=== PATIENT | female | born 1960 | race Caucasian/White ===

== ENCOUNTER → 2023-07-02 07:12 | Outpatient (CLI) | payer OTHER, SELFPAY ==
[2023-07-02 09:04] LABS: Appearance Urine UA CLEAR; Bilirubin Urine UA NEGATIVE (NEGATIVE); Color Urine UA YELLOW; Glucose Urine UA NEGATIVE (Negative); Ketones Urine UA NEGATIVE (NEGATIVE); Leukocyte Esterase Urine UA TRACE (NEGATIVE); Nitrite Urine UA NEGATIVE (Negative); Occult Blood Urine UA NEGATIVE (Negative); Protein Urine UA NEGATIVE (Negative); Specific Gravity Urine UA <=1.005 (1.000-1.035); Urobilinogen Urine UA 0.2 E.U./dL (0.2)
[2023-07-02 09:05] LABS: pH Urine UA 6.5 (4.5-8.0)
[2023-07-02 09:07] LABS: Bacteria Urine None Seen; Culture Indicated Urine Cult Not Indicated; RBC Urine None Seen (0-5/HPF); Squamous Epithelial Cell Urine None Seen (0-5/HPF); Urine Comments Microscopic Normal; WBC Urine None Seen (0-5/HPF)
[2023-07-02 09:11] LABS: Add Manual Diff / Slide Review NO; Basophils Absolute Auto 0 /uL (0-100); Basophils Percent Auto 0.5 % (0-2); Eosinophils Absolute Auto 100 /uL (0-450); Eosinophils Percent Auto 1.6 % (2-4); Hematocrit 40.3 % (36-46); Hemoglobin 13.7 g/dL (12.0-16.0); Lymphocytes Absolute Auto 2000 /uL (1100-4500); Lymphocytes Percent Auto 38.6 % (25-40); Mean Corpuscular Hemoglobin 30.7 PG (26-34); Mean Corpuscular Volume 90.3 fL (80-100); Monocytes Absolute Auto 500 /uL (0-900); Neutrophils Absolute Auto 2600 /uL (1500-7000); Neutrophils Percent Auto 50.3 % (50-75); Platelet Count 258 X10^3/uL (150-400); Red Blood Cell Count 4.46 X10^6/uL (4.0-5.2); Red Cell Distribution Width 12.8 % (11.6-14.8); White Blood Cell Count 5.1 X10^3/uL (4.5-11.0)
[2023-07-02 09:24] LABS: Hemoglobin A1C% w Est Avg Glu 5.4 % (4.0-6.0)
[2023-07-02 09:33] LABS: BUN Creatinine Ratio 25.8 (6-22); Blood Urea Nitrogen 16 mg/dL (7-17); Calcium 9.4 mg/dL (8.4-10.2); Carbon Dioxide 26 mmol/L (22-32); Chloride 105 mmol/L (98-107); Estimated Glomerular Filt Rate > 60 mL/min (>60); Glucose 94 mg/dL (80-110); HEMOLYSIS < 15 (0-50); Sodium 139 mmol/L (137-145)
== END ==
LOC: LAB 07:17 → RESP 07:21
PROVIDERS: Referring Provider Orthopaedic Surgery; Visit Provider Orthopaedic Surgery
DX: Z01.818 Encounter for other preprocedural examination (principal); Z01.812 Encounter for preprocedural laboratory examination; R73.9 Hyperglycemia, unspecified; N39.0 Urinary tract infection, site not specified
CPT/HCPCS: 36415; 80048; 81001; 83036; 85025; 93005; 93010

== ENCOUNTER 2023-10-10 05:59 | Day surgery (SDC) | payer OTHER, SELFPAY ==
[2023-10-04 07:41] VITALS: BMI 34.7
[2023-10-07 11:15] VITALS: BP 162/78; PULSE 66; RESP 18; TEMP 35.8; O2SAT 98
[2023-10-10] VITALS (9 sets, daily range): BP systolic 82–144; BP diastolic 56–85; PULSE 55–77; RESP 16–18; TEMP 35.6–36.5; O2SAT 94–100; BMI 34.7; BMI 35.0
--- NOTE | 2023-10-10 06:00 | DI.RAD.S_ITS ---
PROCEDURE: XR PELVIS 1-2V INDICATIONS: INNER OP TECHNIQUE: 1 view of the lower pelvis acquired. COMPARISON: None. FINDINGS: Bones: There is right total hip arthroplasty in progress. Prior left hip arthroplasty is seen. No acute fracture or dislocation. No suspicious bony lesions. Soft tissues: Overlying postoperative changes are noted. No suspicious soft tissue densities. IMPRESSION: Intraoperative image of pelvis shows right total hip arthroplasty in progress. Dictated by: Emanuel Jeffries M.D. on 10/10/2023 at 13:26 Approved by: Emanuel Jeffries M.D. on 10/10/2023 at 13:27
[2023-10-10] MEDS: ACETAMINOPHEN 325 MG TABLET 975 MG PO (06:34)
[2023-10-10] MEDS: VANCOMYCIN 1,000 MG/200 ML PIGGYBACK 200 MG IV (06:34)
[2023-10-10] MEDS: LACTATED RINGERS 1,000 ML 42 ML IV ×2 (06:35→08:30)
[2023-10-10] MEDS: CELECOXIB 200 MG CAPSULE PO (06:35)
[2023-10-10] MEDS: SCOPOLAMINE 1 PATCH TOP (07:14)
--- NOTE | 2023-10-10 07:33 | PM.PREOP ---
Pre-operative Note Interval Note History & Physical reviewed/Exam performed by Physician: Yes Changes to H&P: No
--- NOTE | 2023-10-10 07:34 | PM.PREOP ---
Pre-operative Note Interval Note History & Physical reviewed/Exam performed by Physician: Yes Changes to H&P: No
--- NOTE | 2023-10-10 07:35 | PM.OP.1 ---
Operative Date/Time/Diagnoses Date of procedure: 10/10/23 Time of procedure: 07:35 Pre-op diagnosis: Severe right hip OA Post-op diagnosis: same Procedure & Clinicians Procedure: Right total hip arthroplasty posterior approach Same procedure as scheduled: Yes Indications: The patient has had progressively worsening right hip pain with radiographic changes consistent with arthritis. Non-operative management has failed and the patient has requested total hip replacement. The risks, benefits and alternatives to surgery were discussed with the patient prior to proceeding. Risks discussed included, but were not limited to, failure to relieve pain, leg length discrepancy, dislocation, stiffness, infection, nerve damage, deep venous thrombosis, pulmonary embolism, stroke, coma, heart attack, permanent paralysis and , as well as the potential need for eventual revision of the prosthetic. Surgeon: Jeannine Wikls Captain Waiter/Waitress: Franci Quach Anesthesia Type: General and Spinal Operative Notes Findings: Severe left hip OA, adequate bone, adequate stability, findings consistent with [facility] Closure Type: primary Specimen(s): none sent Prosthetic devices, grafts, tissues, transplants, or devices: Wilks [employer] Nephew 54 mm R3, neutral poly liner, one 6.5 mm screw, size 12 standard offset Synergy, 36 x +0 Oxinium head Estimated Blood Loss (mL): 250 Procedure in detail: The patient was seen in the pre-operative area, where the patient identified the right hip as the operative site and this was marked with my initials. The patient received pre-operative antibiotics and was taken to the operating room and placed on the operative table in the left lateral decubitus position after satisfactory anesthesia. A time study clerk out was performed. The right leg was prepared from the ankle to the iliac crest with ChloroPrep in the usual fashion and draped through sterile drapes. A PA was used during the procedure and was essential for intraoperative retraction and safe implantation of the components. The hip was approached through an approximately 20 cm incision centered over the greater trochanter and curving gently posteriorly as it went proximally. This was carried sharply to the fascia walt, which was divided and retracted with a self retaining retractor. The trochanteric bursa was excised with care being taken to avoid the sciatic nerve, which was identified and protected throughout the case. The short external rotators were incised and the capsulomuscular flap was raised and tagged for later repair. The hip was dislocated, and a femoral neck osteotomy performed approximately 15 mm above the lesser trochanter. Retractors were placed around the femur. The canal was opened with a box cutting osteotome, followed by a T handled reamer and a lateralizing reamer. The canal was sequentially reamed and then a small broach was then used, followed by sequential broaching until there was good stability of the broach in the femur. Retractors were placed to expose the acetabulum. The labrum and central soft tissues were removed. Reaming was performed initially going up in 2 mm increments, then 1 mm increments until good bite was obtained with an odd sized reamer. The cup 1 mm larger than the last reamer was then inserted using the appropriate anteversion guides. It was further stabilized with a single screw. A trial neutral liner was placed. The broach was placed in the canal. A trial head and neck were then placed and the hip relocated and checked for leg length and stability. An intraoperative film confirmed the component position and no evidence of fracture. The patient was stable in the position of sleep, of squatting, and could be put through a range of motion with 45 degrees internal rotation without dislocation. At 90 degrees flexion, internal rotation to 80? was possible before dislocation. I specifically checked to make sure there was no impingement with hip hyperextension and maximum external rotation. This was felt to be satisfactory and the appropriate components were opened, and the trials were removed. The acetabular liner was impacted into position. The final stem was then impacted into the prepared femoral canal. A brief Betadine soak was performed while trialing with head options. The hip was meticulously irrigated with normal saline. Finally the femoral head was impacted onto the stem. The acetabulum was cleared of all material and the hip relocated one final time. The capsulomuscular flap was then repaired to the greater trochanter though an awl hole using the tag sutures. The short external rotators were repaired with a nonabsorbable suture. The fascia walt was closed with Vicryl. The subcutaneous layer was closed with barbed sutures and skin dom. A lit dressing was applied and the patient was taken to recovery having tolerated the procedure well. Complications: none Post-operative Condition: stable Disposition: Acute Care Plan for aftercare: The patient will be maintained on a standard total hip replacement protocol with weight bearing as tolerated and posterior hip precautions. The patient will receive Aspirin and sequential compression devices for DVT prophylaxis. The patient will be discharged home when safe for the home environment.
[2023-10-10] MEDS: CEFAZOLIN 2 GM/100 ML PREMIX 100 ML IV ×2 (07:55→15:47)
[2023-10-10] MEDS: TRANEXAMIC ACID 1,000 MG VIAL 1000 MG INJ ×2 (07:57→09:31)
--- NOTE | 2023-10-10 08:29 | SUR.OPER ---
Lateral on padded OR bed. Gel axillary roll. Arms secured on padded armboard with pillow supporting top arm. Padded hip positioner braces x4 - anterior and posterior chest and pelvis. Additional gel pad used anterior pelvis. Gel pad under bottom leg from knee to foot and secured with tape over sheet.
[2023-10-10] MEDS: BUPIVACAINE 0.25% (PF) 60 ML, EPINEPHrine 0.3 MG INJ (08:36)
[2023-10-10] MEDS: BUPIVACAINE LIPOSOME 266 MG/20 ML VIAL INJ (08:37)
[2023-10-10] MEDS: EPINEPHrine 1 MG/ML TOP (08:38)
[2023-10-10] MEDS: LACTATED RINGERS 1,000 ML 100 ML IV (11:14)
[2023-10-10] MEDS: OXYCODONE IR 5 MG TABLET PO ×2 (11:14→15:48)
[2023-10-10] MEDS: ONDANSETRON 4 MG/2 ML INJ IV (11:14)
[2023-10-10] MEDS: ACETAMINOPHEN 325 MG TABLET 650 MG PO (13:07)
[2023-10-10] MEDS: IBUPROFEN 400 MG TABLET PO (13:08)
--- NOTE | 2023-10-10 16:00 | PT.IIE ---
Current Diagnoses Unilateral primary osteoarthritis, right hip (10/10/23) Surgery Performed Operation Date: 10/10/23 07:45 Actual Procedures p Total Hip Arthroplasty(Right) - Jeannine Wilks MD Surgical History (Last Updated 10/04/23 @ 08:10 by Rubina Stallworth, RN) History of hysterectomy History of total left hip replacement (2012) Hx of tonsillectomy Medical History (Last Updated 10/04/23 @ 09:46 by Rubina Stallworth, RN) Anesthesia complication CAD (coronary artery disease) Easy bruisability History of COVID-19 HLD (hyperlipidemia) HTN (hypertension) Hypothyroidism Osteoarthritis Physical Therapy Inpatient Evaluation/Re-Eval M1 PT/OT-IP Prior Functional Status Start: 10/10/23 14:16 Freq: NEEDED Status: Active Protocol: Document 10/10/23 15:02 MB (Rec: 10/10/23 16:00 MB [id number]) Medical Review Prior Functional Status Medical History Reviewed Yes Diet/Fluid Consistency Regular Communication WNLs Mobility and Gait I Activities of Daily Living and IADL's I Social History Household Members spouse Living Arrangements House Number of Floors (Floors) One Floor Number of Stairs To Enter/Railing? 4 steps with right rail to enter. Home Environment Standard Height Toilet,Walk in Shower Home Equipment Front Wheel Walker,Bedside Commode Employment Status Retired M2 PT-IP Current Condition Start: 10/10/23 14:16 Freq: NEEDED Status: Active Protocol: Document 10/10/23 15:02 MB (Rec: 10/10/23 16:00 MB [id number]) Physical Therapy Current Condition Current Condition Evaluation Date 10/10/23 M3 PT-IP Subjective Start: 10/10/23 14:16 Freq: NEEDED Status: Active Protocol: Document 10/10/23 15:02 MB (Rec: 10/10/23 16:00 MB [id number]) Subjective Physical Therapy Visit Type Type Initial Evaluation Visit Start Time 15:02 Visit Stop Time 15:32 Total Visit Minutes 30 Number of CHECK CLERK Visits 0 Physical Therapy Visit Comments Patient Comments I'm ready to go home! Therapy Pain Assessment Pain When Pain Assessed During Mobility Pain Present Pain Present Pain Reported Location Right Hip Intensity 5 Scale Used SoNiallDavies (Faces) Description Acute Pain Behaviors Guarding Pain Management Techniques Re-positioning M4 PT-IP Mobility and Gait Start: 10/10/23 14:16 Freq: NEEDED Status: Active Protocol: Document 10/10/23 15:02 MB (Rec: 10/10/23 16:00 MB [id number]) PT-Bed Mobility Assessment Rolling Level of Assist Standby Assistance,1 Person Assistance Supine to Sit Supine to Sit Standby Assistance,1 Person Assistance Scooting Scooting Up and Down in Bed Standby Assistance PT-Transfer Assessment Sit to and From Stand Sit to and from Stand Standby Assistance,1 Person Assistance Equipment Transfer Assistive Device Gait Belt,Front Wheeled Walker Orthotic/Prosthetic Devices or Brace: No Transfers Transfer Destination Toilet Transfer Technique Ambulation Transfer Ability Level of Assist Standby Assistance,1 Person Assistance Comments Mobility Comments Cues for step-to gait and to roll the walker and not pick it up, to pick it up and not scoot on her feet and to take shorter steps Gait Assessment Gait Gait Assistance Required: Standby Assistance,1 Person Assist Distance (Feet) 70 Able to Maintain Weight Bearing Status Yes During Gait Assistive Devices Assistive Device Gait Belt,Front Wheeled Walker Orthotic/Prosthetic Devices or Brace: No Gait Deviations General Gait Pattern Antalgic,Step-to Gait Factors Limiting Gait Function Factors Limiting Gait Function Pain Comments Gait Comments Pt is able to gait train 70'x2 with RW with SBA and cues described above. is nearby and he and pt report that the feel comfortable with managing her at home and are ready for d/c. They have been through this before with her other hip replacement and she is aware of 3/3 posterior hip precautions when asked. Stair Climbing Assessment Evaluation Level of Assist On Stairs Standby Assistance Devices Stair Climbing Assistive Devices Right Railing Technique/Endurance Stair Climbing Direction Ascend and Descend Stair Climbing Technique Step to Step Number of Steps Climbed 3 Query Text: Stair Climbing Set # Repetitions (reps) 1 Comments Stair Climbing Comments Good performance of step-to gait facing right rail and ascend sideways step by step to avoid twisting on right foot and pt and also verbalize understanding. She has some antalgic gait same day surgery. PT-Balance Assessment Sitting Balance and Reactions Static Sitting Balance Ability Good Dynamic Sitting Balance Ability Good Standing Balance and Reactions Static Standing Balance Ability Good Dynamic Standing Balance Ability Good Device Used RW M5 PT-IP Objective Assessments Start: 10/10/23 14:16 Freq: NEEDED Status: Active Protocol: Document 10/10/23 15:02 MB (Rec: 10/10/23 16:00 MB [id number]) Orientation Orientation/Cognition Level of Alertness Alert Orientation Name,Age,Birthday,Month,Date, Year,Day of Week,Place, Situation Language Function Ability No Deficits Noted Safety Awareness Understands Safety Issues Memory Description No Deficits Noted Gross Range of Motion Upper Extremity ROM Assessment Within Functional Limits Lower Extremity ROM Assessment Right Impaired Strength Upper Extremity Strength Assessment Within Functional Limits Lower Extremity Strength Assessment Right Impaired Comments Strength Comments RLE edematous and painful same day posterior hip replacement M6 PT-IP Treatment Start: 10/10/23 14:16 Freq: NEEDED Status: Active Protocol: Document 10/10/23 15:02 MB (Rec: 10/10/23 16:00 MB [id number]) Physical Therapy Treatment Exercises Exercises Ankle Pumps,Gluteal Sets,Quad Sets,Heel Slides Education Education Provided Precautions,Weight Bearing Status,Post-Op Packet,Safety M7 PT-IP Assessment and Plan Start: 10/10/23 14:16 Freq: NEEDED Status: Active Protocol: Document 10/10/23 15:02 MB (Rec: 10/10/23 16:00 [id number]) PT Summary Assessment and Plan Potential Rehabilitation Potential Good Status of Condition at Evaluation Stable Summary Impairments Pain,ROM,Strength,Balance,Gait Progress Towards Goals Safe For Discharge Assessment Summary Pt is a 63 y/o female presenting with good awareness of posterior hip precautions from last surgery. She is SBA for all mobility, is nearby for treatment, and he will provide SBA at d/c. From PT standpoint, they are safe to d/c home and she starts OPPT next week. Frequency of Treatment Frequency Of Treatment Discharge Precautions Posterior Hip Precautions No Hip Flexion > 90 degrees,No Hip Internal Rotation,No Hip Adduction Weight Bearing Status Weight Bearing Status Weight Bear as Tolerated Recommendations To Nursing Amount of Assist Needed Standby Assistance Discharge Recommendations PT Discharge Recommendations Home with Assistance, Outpatient PT Transportation Needs at Discharge Private Vehicle
--- NOTE | 2023-10-10 17:14 | PM.DS.1 ---
History of Present Illness History of Present Illness Date Patient Seen: 10/10/23 Time Patient Seen: 17:14 Chief complaint: Right hip pain Narrative: Patient has right hip pain is mild. Denies fever or chills. No nausea or vomiting. Patient has been up in her room and has been able to use the restroom. Her 's home and available to assist her. Patient worked with physical therapy and recommend discharged home with assistance. Discharge Providers Provider Discharge Date: 10/10/23 Primary care physician: Lucero Lennon PA-C Consults: 10/10/23 06:00 Consult to Anesthesiology Routine Comment: Consulting Provider: Anesthesiologist Reason for consultation: Regional block for post operative pain control 10/10/23 10:45 Consult to Discharge Planning Routine Comment: Consult to Occupational Therapy Evaluate & Treat Comment: Physician Instructions: Evaluate and treat Consult to Physical Therapy Evaluate & Treat Comment: Physician Instructions: post op BOOM protocol Discharge provider: Davide Heath PA-C Summary Hospital Course Discharge Diagnosis: Severe right hip osteoarthritis Hospital Course: Right total hip arthroplasty posterior approach Same procedure as scheduled: Yes Indications: The patient has had progressively worsening right hip pain with radiographic changes consistent with arthritis. Non-operative management has failed and the patient has requested total hip replacement. The risks, benefits and alternatives to surgery were discussed with the patient prior to proceeding. Risks discussed included, but were not limited to, failure to relieve pain, leg length discrepancy, dislocation, stiffness, infection, nerve damage, deep venous thrombosis, pulmonary embolism, stroke, coma, heart attack, permanent paralysis and , as well as the potential need for eventual revision of the prosthetic. Surgeon: Jeannine Wilks Emulsion Operator: Franci Quach Anesthesia Type: General and Spinal Operative Notes Findings: Severe left hip OA, adequate bone, adequate stability, findings consistent with [facility] Closure Type: primary Specimen(s): none sent Prosthetic devices, grafts, tissues, transplants, or devices: Wilks [employer] Nephew 54 mm R3, neutral poly liner, one 6.5 mm screw, size 12 standard offset Synergy, 36 x +0 Oxinium head Estimated Blood Loss (mL): 250 Patient admitted to the hospital for the above-mentioned procedure. Patient consented to the same. Patient underwent right total hip arthroplasty posterior approach. Patient recovering well in her room. She is worked with physical therapy. She has assistance at home. Patient will be discharged home today in stable condition. Exam Vital Signs (past 8 hours): - 10/10/23 10:17 10/10/23 10:22 10/10/23 10:27 Temperature 97.2 F L Pulse Rate 70 68 64 Respiratory Rate 16 16 16 Blood Pressure 92/56 L 82/56 L 91/56 L Pulse Oximetry 98 94 98 Oxygen Delivery Method Room Air Nasal Cannula Room Air Oxygen Flow Rate 2 10/10/23 10:32 10/10/23 10:45 10/10/23 11:45 Temperature 97.2 F L 96.0 F L 96.5 F L Pulse Rate 58 L 55 L 61 Respiratory Rate 16 18 18 Blood Pressure 96/85 125/67 140/79 Pulse Oximetry 98 100 99 Oxygen Delivery Method Room Air Oxygen Flow Rate 10/10/23 12:15 10/10/23 13:21 Temperature 97 F L 97.4 F L Pulse Rate 66 77 Respiratory Rate 18 18 Blood Pressure 138/78 142/70 H Pulse Oximetry 100 99 Oxygen Delivery Method Oxygen Flow Rate Oxygen Delivery Method Room Air Oxygen Flow Rate 2 Narrative Exam Narrative: 63-year-old female sitting comfortably in bedside chair in no apparent distress. Right hip jose l dressing is on and functioning. Dressing is clean, dry and intact. Neurovascular status is intact distal right lower extremity. Const General: cooperative and comfortable Nutritional Appearance: obese (BMI 35) Orientation: alert Resp Effort & Inspection: normal respiratory effort and able to speak in complete sentences [facility] Medical History CAD (coronary artery disease) History of COVID-19 Easy bruisability Osteoarthritis Hypothyroidism HLD (hyperlipidemia) HTN (hypertension) Anesthesia complication Surgical History History of total left hip replacement (2012) Hx of tonsillectomy History of hysterectomy Social History household members: spouse Smoking Status: Never smoker alcohol intake: current Discharge Assessment & Plan Assessment and Plan Assessment: Patient progressing as expected status post right total hip arthroplasty, posterior approach Plan of Treatment: Patient mobilize with physical therapy, posterior hip precautions Multimodal pain management Follow up in 2 weeks Jose L dressing instructions reviewed Discharge home today in stable condition Discharge Plan Discharge Plan Patient Disposition: Home Discharge orders & Medications Discharge Orders: Discharge (Order); Ordered 10/10/23 Ordered By: Davide Heath Prescriptions: New acetaminophen 325 mg Tablet 650 mg PO Q6H PRN (Reason: Fever/Mild Pain (1-3)) Qty: 60 0RF aspirin 81 mg Tablet,Delayed Release (Dr/Ec) 81 mg PO BID Qty: 60 0RF Continued levothyroxine 50 mcg Tablet 50 mcg PO DAILY lisinopril 10 mg Tablet 10 mg PO DAILY ibuprofen [Advil] 200 mg Tablet 200 mg PO DAILY rosuvastatin 5 mg Tablet 5 mg PO DAILY Follow up/Referrals: Lucero Lennon, PANiallC [Primary Care Provider] - Jeannine Wilks MD [Physician] - (Two weeks as scheduled) Diet/Activity/Treatments Diet: Diet as Tolerated Activity: hip precautions Cold/Heat Therapy: Topical ice to surgical site as needed for pain control Skin/Wound/Dressing Care Dressing: Keep dressing clean and dry, if dressing becomes saturated or dirty okay to remove and replace with clean dry gauze and call our office Visit Report/Discharge Packet Instructions: DI for Hip Replacement Stand Alone Forms: Patient Portal/API, Surgery Discharge Discharge Data Primary Care Provider: Lucero Lennon Attending Provider: Jeannine Wilks Quality VTE Deep Vein Thrombosis/Pulmonary Embolism Present on Admission: No
--- NOTE | 2023-10-10 17:55 | PC.NURSE ---
Day shift: Patient admitted from PACU this AM. Pain well controlled with PO oxycodone, APAP, and Ibuprofen. VIANNEY dressing CDI. Patient OOB with SBA + FWW. Voiding in toilet. Worked with PT and cleared to go home. No nausea/vomitting. Discharge instructions gone over with patient and patient's spouse. All questions answered and patient stated understanding. PIV removed prior to discharge. All belongings with patient. PCT Leigh escorted patient via wheelchair to main entrance where her significant other picked her up.
== END 2023-10-10 17:50 | disposition home or self-care (01) ==
LOC: OR 06:01 → AC 06:01
PROVIDERS: PCP Physician Assistant; Referring Provider Orthopaedic Surgery; Visit Provider Orthopaedic Surgery
PROC: 0SR90JZ Replacement of Right Hip Joint with Synthetic Substitute, Open Approach (ICD-10-PCS; CPT 27130; principal; 2023-10-10 07:45)
DX: M16.11 Unilateral primary osteoarthritis, right hip (principal)
CPT/HCPCS: 27130; 72170; 97161; C1776; C9290; J0171; J0690; J1100; J2250; J2405; J2704; J3010